=== PATIENT | female | born 1980 | race Hispanic/Latino ===

== ENCOUNTER 2020-03-22 11:25 | Outpatient (CLI) | payer OTHER ==
--- NOTE | 2020-03-22 12:57 | RAD ---
RIGHT ANKLE 3 VIEWS: Date: 03/22/2020 HISTORY: Right ankle pain and occasional swelling. FINDINGS: Minimal anterior soft tissue fullness/swelling. No fracture or dislocation, or other acute process. IMPRESSION: Minimal soft tissue fullness/swelling. No fracture or dislocation, or other acute process. POS: [facility]
--- NOTE | 2020-03-22 12:58 | RAD ---
LEFT SHOULDER 3 VIEWS: Date: 03/22/2020 HISTORY: Left shoulder pain. FINDINGS/IMPRESSION: No fracture, dislocation, or other significant acute osseous process. POS: [facility]
== END 2020-03-22 11:26 | disposition home or self-care (01) ==
LOC: BICRAD 11:25
PROVIDERS: ATTEND Family Medicine
DX: M25.512 Pain in left shoulder (principal); M25.571 Pain in right ankle and joints of right foot

== ENCOUNTER 2021-03-08 07:34 | Emergency (ER) | payer OTHER, SELFPAY ==
[2021-03-08] MEDS ORDERED: Ketorolac Tromethamine 30 MG/ML VIAL ONE (07:56)
[2021-03-08] MEDS ORDERED: Lorazepam 2 MG/ML VIAL ONE (07:56)
== END 2021-03-08 09:33 | disposition home or self-care (01) ==
LOC: ERS 07:34
DX: S16.1XXA Strain of muscle, fascia and tendon at neck level, initial encounter (principal)
CPT/HCPCS: 72125; 96374; 96375; J1885; J2060